=== PATIENT | male | born 1950 | race Caucasian/White ===

== ENCOUNTER 2018-02-17 07:33 | Day surgery (SDC) | payer MEDICARE ==
[2018-02-16 09:31] LABS: BASOPHILS 0.3 % (0-2); EOSINOPHILS 0.4 % (0-7); HEMATOCRIT 40.4 % (42.0-54.0); HEMOGLOBIN 13.7 g/dL (13.5-17.5); IMMATURE GRANULOCYTES 0.3 % (0-5); LYMPHOCYTES 17.1 % (15-50); MCH 27.9 pg (26.0-34.0); MCHC 33.9 g/dL (31.0-37.0); MCV 82.3 fL (80.0-100.0); MEAN PLATELET VOLUME 9.9 fL (7.4-10.4); NEUTROPHILS 74.9 % (40-80); PLATELET COUNT 233 10x3/uL (130-400); RBC 4.91 10x6/uL (4.20-6.10); RDW 14.1 % (11.5-14.5); WBC 6.8 10x3/uL (4.8-10.8)
[2018-02-16 09:50] LABS: INR 1.12 (0.85-1.17); PROTIME 13.9 SECONDS (11.6-15.0)
[2018-02-16 09:51] LABS: APTT 35.1 SECONDS (22.8-39.4)
[~2018-02-17] VITALS: Ht 175.3 cm; Wt 71.8 kg
--- NOTE | ~2018-02-17 | OP ---
PATIENT NAME: PHIL WOODS MEDICAL RECORD: [id number] :50 LOCATION:[facility] ADMISSION DATE: SURGEON: RICHARD GORDILLO MD DATE OF OPERATION: 02/17/2018 SURGEON: Richard Gordillo MD ANESTHESIA: MAC by Cali Paz CRNA PREOPERATIVE DIAGNOSIS: Elevated PSA 6.68. PROCEDURE: Transrectal ultrasound and prostate biopsy and also straight catheterization to drain the bladder. SPECIMENS: Prostate biopsy cores. BLOOD LOSS: None. CLINICAL HISTORY: This is a 67-year-old male with some mild obstructive BPH symptoms. These responded well to tamsulosin. He was found to have an elevated PSA of 6.68. There is no family history of prostate cancer. On digital rectal examination, he has a small benign feeling prostate. He comes today to have a prostate biopsy performed. He is not allergic to any medications. 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 DESCRIPTION OF PROCEDURE: The patient was given IV sedation. He was then placed into a dorsal lithotomy position. The transrectal ultrasound probe was introduced and prostate size measurements were obtained. We did notice that his bladder was quite full on this examination. He has intraprostatic stones, but no hypoechoic areas were seen. Sextant biopsies were obtained with at least 3 specimens from each sextant. Once all the specimens were obtained, the probe was removed. The penis was prepped and a red rubber catheter was inserted to drain the bladder. The catheter was then removed and discarded. The patient was then brought to the preoperative holding area. TRANSINT:[id number] Voice Confirmation ID: [id number] DOCUMENT ID: [id number] RICHARD GORDILLO MD at [id number] CC: [id number] DICTATION DATE: 02/17/18 1036 CODING FILE CLERK: 02/17/18 1304 [facility] 02/17/18 [id number] [place] [address]
[~2018-02-17 07:33] MED LIST: BACTRIM DS TABL1 TAB PO; FLOMAX0.4 MG PO; FLUTICASONE PRO16 GM NASAL; HYDROCORTISONE30 G9 TOPICAL; MOBIC7.5 MG PO; TYLENOL PM1 TAB PO
[2018-02-17 08:22] VITALS: BP 126/79; Ht 175.3 cm; Wt 71.8 kg
== END 2018-02-17 11:20 | disposition home or self-care (01) ==
LOC: D.OPS 07:33 → EDBD 09:30 → D.PAN 09:30 → D.OPS 09:30
PROVIDERS: Anesthesiology
DX: C61 Malignant neoplasm of prostate (principal); Z01.812 Encounter for preprocedural laboratory examination

== ENCOUNTER → 2018-03-08 09:10 | Outpatient (CLI) | payer MEDICARE ==
[2018-02-17 08:22] VITALS: BMI 23.3
== END | disposition home or self-care (01) ==
LOC: D.NM 03-05 09:30
DX: C61 Malignant neoplasm of prostate (principal)